=== PATIENT | female | born 1965 ===

== ENCOUNTER 2023-05-01 05:42 | Outpatient (CLI) | payer OTHER, SELFPAY | END 2023-05-01 05:43 | disposition home or self-care (01) | LOC: AMB 05-24 11:10 | PROVIDERS: Visit Provider Family Medicine | DX: S29.9XXA Unspecified injury of thorax, initial encounter (principal); S09.92XA Unspecified injury of nose, initial encounter; V49.40XA Driver injured in collision with unspecified motor vehicles in traffic accident, initial encounter; Y92.410 Unspecified street and highway as the place of occurrence of the external cause | CPT/HCPCS: A0425; A0427 ==

== ENCOUNTER 2023-05-01 06:43 | Emergency (ER) | payer OTHER, SELFPAY ==
--- NOTE | 2023-05-01 06:54 | CRLHL7_ITS ---
For Patients: As a result of the Century Cures Act, medical imaging exams and procedure reports are released immediately into your electronic medical record. You may view this report before your referring provider. If you have questions, please contact your health care provider. INDICATION: Injury COMPARISON: None TECHNIQUE: CT examination of the head was performed as axial sections without intravenous contrast. Images were obtained from the vertex of the skull through the skull base. Please note that all CT scans at this facility use dose modulation, iterative reconstruction, and/or weight-based dosing when appropriate to reduce radiation dose to as low as reasonably achievable. FINDINGS: The brain shows no sign of mass lesion, mass effect, hemorrhage, or edema. The ventricles and sulci are normal in appearance for the patient`s age. The visualized portions of the orbits are normal in appearance. The osseous structures are normal in their appearance with no sign of abnormality in the skull base or calvarium. IMPRESSION: No acute intracranial posttraumatic finding. Please note that all CT scans at this facility use dose modulation, iterative reconstruction, and/or weight-based dosing when appropriate to reduce radiation dose to as low as reasonably achievable. Dictated by Wilberto Urias MD @ 05/01/2023 7:36:26 AM (Electronically Signed)
--- NOTE | 2023-05-01 06:54 | CRLHL7_ITS ---
For Patients: As a result of the 21st Century Cures Act, medical imaging exams and procedure reports are released immediately into your electronic medical record. You may view this report before your referring provider. If you have questions, please contact your health care provider. INDICATION: Injury COMPARISON: None TECHNIQUE: CT examination of the chest, abdomen and pelvis was performed following the uneventful intravenous administration of 95 cc of Omnipaque 350. Thin section axial images were obtained from the thoracic inlet through the pubic symphysis. Oral contrast was not administered. Sagittal and coronal reformatted imaging was performed Please note that all CT scans at this facility use dose modulation, iterative reconstruction, and/or weight-based dosing when appropriate to reduce radiation dose to as low as reasonably achievable. FINDINGS: CHEST: Heart size normal. No mediastinal or hilar adenopathy or mass. No pericardial effusion. No evidence of mediastinal vascular injury. Heterogeneous enlargement and nodularity of the thyroid lobe on the right. Follow-up evaluation by sonography is recommended at a clinically appropriate time. Lung windows reveal evidence of remote granulomatous infection. A few dependent opacities are noted consistent with atelectasis. No focal consolidation, infiltrate, mass or evidence of traumatic lung or pleural injury. No pleural effusion or pneumothorax. ABDOMEN AND PELVIS: LIVER/BILIARY SYSTEM:Hepatic steatosis with areas of focal fat near the falciform ligament. No posttraumatic finding. The gallbladder appears normal. No perihepatic fluid collection ADRENALS: Normal KIDNEYS, URETERS and BLADDER:The kidneys appear normal. No visible mass, calculus or hydronephrosis. The ureters and bladder as visualized appear normal. SPLEEN:Normal appearance. PANCREAS: Appears normal. RETROPERITONEUM and MESENTERY: There is no mass, adenopathy or aortic aneurysm. GASTROINTESTINAL SYSTEM: There is no evidence of diverticulitis, colitis, mechanical obstruction, or appendicitis. The small bowel as visualized appears normal.Scattered diverticulosis PELVIS: No mass, adenopathy or free fluid. OSSEOUS STRUCTURES and ABDOMINAL WALL: There is no acute traumatic finding noted involving the pelvis, thoracic spine, lumbar spine, ribs or sternum. There are degenerative changes of the spine. Transitional vertebral body of the lower lumbosacral region. No significant abdominal wall abnormalities OTHER: No free fluid or free air. IMPRESSION: 1. CHEST: No acute posttraumatic findings. Heterogeneous nodularity and enlargement of the right thyroid lobe for which sonography is recommended in the nonacute care setting. Evidence of remote granulomatous infection. Normal pleural spaces. 2. ABDOMEN AND PELVIS: No acute posttraumatic findings. Incidental nonacute appearing findings as above. 3. OSSEOUS STRUCTURES: No acute posttraumatic finding. Please note that all CT scans at this facility use dose modulation, iterative reconstruction, and/or weight-based dosing when appropriate to reduce radiation dose to as low as reasonably achievable. Dictated by Wilberto Urias MD @ 05/01/2023 7:52:44 AM (Electronically Signed)
--- NOTE | 2023-05-01 06:54 | CRLHL7_ITS ---
For Patients: As a result of the Cures Act, medical imaging exams and procedure reports are released immediately into your electronic medical record. You may view this report before your referring provider. If you have questions, please contact your health care provider. INDICATION: Injury COMPARISON: None TECHNIQUE: CT examination of the cervical spine is performed without contrast using spiral technique. Thin axial, sagittal and coronal reconstructions were made. Please note that all CT scans at this facility use dose modulation, iterative reconstruction, and/or weight-based dosing when appropriate to reduce radiation dose to as low as reasonably achievable. FINDINGS: : There is no traumatic malalignment. There is no acute fracture, dislocation or destructive process. Mild arthritic changes. Heterogeneous nodularity of the right thyroid lobe is significantly enlarged. Recommend correlation with sonography at a clinically appropriate time. IMPRESSION: 1. No visible acute post traumatic findings involving the cervical spine. 2. Heterogeneous enlargement and nodularity of the right thyroid lobe for which follow-up sonography is recommended in the nonacute care setting. Please note that all CT scans at this facility use dose modulation, iterative reconstruction, and/or weight-based dosing when appropriate to reduce radiation dose to as low as reasonably achievable. Dictated by Wilberto Urias MD @ 05/01/2023 7:39:54 AM (Electronically Signed)
[2023-05-01 06:55] VITALS: BP 168/105; PULSE 75; RESP 18; TEMP 36.9; O2SAT 99; BMI 23.9
[2023-05-01 07:01] LABS: Creatinine, Point-of-Care* 0.8 mg/dl (0.6-1.3)
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
[2023-05-01 08:02] VITALS: BP 143/93; PULSE 69; RESP 14; O2SAT 98
[2023-05-01] MEDS: 0.9 % SODIUM CHLORIDE 1000 ml 1,000 ML IV (08:25)
[2023-05-01 08:30] VITALS: O2SAT 98
[2023-05-01 09:00] VITALS: BP 168/105; PULSE 75; RESP 18; TEMP 36.9
== END 2023-05-01 09:00 | disposition home or self-care (01) ==
PROVIDERS: Emergency Provider Family Medicine
DX: R51.9 Headache, unspecified (principal); M54.2 Cervicalgia; R07.89 Other chest pain; V43.52XA Car driver injured in collision with other type car in traffic accident, initial encounter; Y92.410 Unspecified street and highway as the place of occurrence of the external cause; R59.0 Localized enlarged lymph nodes
CPT/HCPCS: 70450; 71260; 72125; 74177; 82565; 94761; 99284; 99291; G0390; J7030; Q9967